=== PATIENT | male | born 1960 | race Caucasian/White ===

== ENCOUNTER 2020-06-13 06:38 | Outpatient (CLI) | payer BC ==
[2020-06-13 23:35] LABS: SARS-CoV-2 MS2 Positive; SARS-CoV-2 N Gene Negative; SARS-CoV-2 S Gene Negative; SARS-CoV-2 by NAA Not Detected (NotDetected); SARS-CoV-2 orf1ab Negative
== END 2020-06-13 06:39 | disposition home or self-care (01) ==
LOC: LABBT 06:38
PROVIDERS: ATTEND Specialist
DX: Z01.818 Encounter for other preprocedural examination (principal); K42.9 Umbilical hernia without obstruction or gangrene; Z20.828 Contact with and (suspected) exposure to other viral communicable diseases
CPT/HCPCS: 87635; 93005; 93010; U0003

== ENCOUNTER → 2020-06-16 | Day surgery (SDC) | payer BC ==
--- NOTE | 2020-06-15 11:33 | HP ---
HISTORY OF PRESENT ILLNESS: Jayson Milton is a 60-year-old male, followed by Dr. Centeno. History of umbilical hernia repair mesh laparoscopic at [facility], Dr. Rivera six years ago. This recurred after 2 to 3 years postoperatively when the patient suffered the flu, coughing, has been enlarging since then. He has lost from 310 pounds to a current weight of 265 pounds by food selections. Current BMI of 40, 265 pounds, and 68 inches. He wants to be more active and since his hernia is large, he desires repair now that he has lost 50 pounds intentionally. He is up-to-date on colonoscopies, due in another 3 to 4 years. SOCIAL HISTORY: Tobacco, none. Alcohol, socially. MEDICATIONS: 1. Lisinopril/hydrochlorothiazide 20/12.5 mg two a day. 2. Amlodipine 5 mg a day. 3. Coreg 12.5 mg twice a day. 4. Paroxetine 40 mg a day. 5. Simvastatin 10 mg daily. 6. Aspirin 81 mg a day. ALLERGIES: NONE. PAST SURGICAL HISTORY: Umbilical hernia repair laparoscopic six years ago [place] Dr. Nicole JACOBS. Cornea transplant, left eye. PAST MEDICAL HISTORY: Hypertension, anxiety, and cholesterol. REVIEW OF SYSTEMS: Ten-point noncontributory. Cardiac, noncontributory. FAMILY HISTORY: Noncontributory. PHYSICAL EXAMINATION: VITAL SIGNS: 265 pounds, 68 inches, and 40 BMI. 142/76, 64 heart rate, and 98.1 degrees. HEAD, EARS, EYES, NOSE, AND THROAT: Unremarkable. LUNGS: Clear to auscultation. CARDIAC: Regular rate and rhythm without murmur or gallop. ABDOMEN: Soft and obese. Umbilical hernia, umbilicus and hernia defect just above the umbilicus with a very large hernia mass partially though not completely reduced. EXTREMITIES: Unremarkable. No ankle edema. ASSESSMENT AND PLAN: 1. Recurrent incisional hernia. We would recommend robot repair with mesh reinforcement outpatient. He understands risks of infection, bleeding, reoperation, recurrence of hernia, seroma formation, etc., consents. 2. Hypertension. 3. Obesity. 4. Cholesterol. 5. Anxiety. Job ID: [id number]
[2020-06-15 12:21] VITALS: BMI 39.4
[~2020-06-16] MED LIST: Acetaminophen 500 MG TAB ONE; Bupivacaine 0.25% HCL 30 ML VIAL ONE; Fentanyl 100 MCG/2 ML VIAL ONE; Gabapentin 300 MG CAP ONE; HYDROcodone/Acetaminophen 5/325 mg Tablet ONE; Ketorolac Tromethamine 30 MG/ML VIAL ONE; Lidocaine 1% PF 5 ML VIAL ONE; Lidocaine 1% w/Epinephrine 1:100K 20 ML VIAL ONE; Midazolam HCl 2 mg/2 ml Vial ONE; Ondansetron PF 4 MG/2 ML Vial ONE; PHENYLEPHRINE-NS 100 MCG/ML 10 ML SYRINGE ONE; PROPOFOL 200 MG/20 ML VIAL ONE; Phenylephrine 10 MG/ML VIAL ONE; Rocuronium Bromide 10 MG/ML (10ML VIAL) ONE; ePHEDrine 50 MG/ML VIAL ONE
--- NOTE | 2020-06-16 15:27 | OP ---
DATE OF PROCEDURE: 06/16/2020 PREOPERATIVE DIAGNOSES: Incisional hernia above the umbilicus, umbilical hernia, morbid obesity, intentional 50 pounds weight loss preoperatively. POSTOPERATIVE DIAGNOSES: Incisional hernia above the umbilicus, umbilical hernia, morbid obesity, intentional 50 pounds weight loss preoperatively. PROCEDURE PERFORMED: Robot adhesiolysis and removal of some of the old mesh. Robot/laparoscopic repair of incisional hernia 4 cm defect above the umbilicus. Robot laparoscopic repair of umbilical hernia. 9 cm round mesh reinforcement of incisional hernia repair and overlapping 8 cm diameter mesh reinforcement of umbilical hernia repair. ANESTHESIA: General, local 0.25% Marcaine 30 mL mixed with 1% Xylocaine with epinephrine 30 mL, total volume used. DESCRIPTION OF PROCEDURE: The patient was taken to the operating room where general anesthesia, Posada catheter placed at the beginning of the procedure and removed at the end. Abdomen was prepared with ChloraPrep and draped in routine fashion. Local anesthetic was infiltrated in the skin and subcutaneous tissue about each port site about the operative sites. Right lateral subcostal incision made. Pneumoperitoneum to 15 mmHg was obtained with a Veress needle, replaced it with an 8 mm port where laparoscope inserted. Right lateral mid abdominal incision made and 11 mm balloon port placed, and a right lower quadrant lateral incision made and 8 mm port placed. Robot was docked, positioned, and robot repair of the hernia was undertaken. There was a very large hernia sac above the umbilicus midline. Incarcerated omental content dissected free from the hernia sac, freed into the abdominal cavity. Hernia sac partially resected using hot cautery for hemostasis. Fascial edges identified. Pneumoperitoneum reduced to 8 mmHg and fascia approximated with continuous suture of #1 V-Loc suture to and fro. Once this was closed, a 9 cm round mesh reinforced this closure, secured it with continuous suture of 2-0 V-Loc suture. Once this was completed, palpation revealed an umbilical hernia that was not appreciated because of the patient's obesity. The preperitoneal fat taken down identifying this defect which was closed with #1 V-Loc suture to and fro. An 8 cm mesh placed overlapping the mesh using incisional hernias superiorly and securing it with continuous suture of 2-0 V-Loc suture. Good hemostasis noted. Hernia repair was completed and intact and pneumoperitoneum reduced. All instruments removed. All skin incisions were approximated with interrupted subdermal 4-0 Monocryl and [place] glue applied. I wanted to place abdominal binder but the hospital does not have the appropriate size. Thus, foam dressing with a pressure dressing applied. Job ID: [id number]
== END ==
LOC: SDC 05:58
PROVIDERS: ATTEND Specialist
PROC: 0WUF4JZ Supplement Abdominal Wall with Synthetic Substitute, Percutaneous Endoscopic Approach (ICD-10-PCS; principal; 2020-06-16)
DX: K43.2 Incisional hernia without obstruction or gangrene (principal); K42.9 Umbilical hernia without obstruction or gangrene; E66.01 Morbid (severe) obesity due to excess calories; E11.9 Type 2 diabetes mellitus without complications; F41.9 Anxiety disorder, unspecified; F32.9 Major depressive disorder, single episode, unspecified; E78.00 Pure hypercholesterolemia, unspecified; I10 Essential (primary) hypertension; G47.30 Sleep apnea, unspecified; Z68.39 Body mass index [BMI] 39.0-39.9, adult; Z79.82 Long term (current) use of aspirin; Z79.84 Long term (current) use of oral hypoglycemic drugs; Z79.899 Other long term (current) drug therapy; Z88.8 Allergy status to other drugs, medicaments and biological substances; Z87.891 Personal history of nicotine dependence
CPT/HCPCS: C1781; J0690; J1885; J2250; J2370; J2405; J2704; J3010; J3490; S0020